=== PATIENT | male | born 1940 | race Caucasian/White ===

== ENCOUNTER → 2021-09-30 | Outpatient (CLI) | payer OTHER ==
[~2021-09-30] VITALS: Ht 175.3 cm; Wt 79.4 kg
[~2021-09-30] MED LIST: ALDARA; ASA81BEC PO; CYMBALTA60 MG PO; DOXAZOSIN MESYLA8 MG PO; HYDROCODON-ACE1 EAC7 PO; NORVASC10 MG PO; OCUVITE ADULT1 EAC2 PO; TOPROL XL25 MG PO; ULTRAM50 MG PO; VASCEPA1 GM PO; VITAMIN B12-FO1 EAC1 PO; ZETIA10 MG PO
[2021-09-30 13:06] VITALS: BP 147/87
--- NOTE | 2021-09-30 13:52 | NUR ---
[facility] Assessment: 1. History of Osteoarthritis: History of Rheumatoid Arthritis: NECK 2. Height: 5 ft. 9 in. 175.3 cm. Weight: 175.0 lb. oz. 79.380 kg. Patient's BMI: 25.8 3. Vital Signs: BP: 147/87 Pulse: 75 Resp: 16 Temp: 02 Sat: 100 ECG Mon: 4. Pain Intensity: 6 UP TO A 9 5. Fall Risk: Dizziness: N Needs help standing or walking: N Fallen in the last 3 months: N Fall risk comments: 6. Patient on Blood Thinner: None 7. History of Hypertension: Y 8. Opioid Therapy greater than 6 weeks: Opiate Contract Signed: 9. Risk Assessment Tool Provided: 0-3 LOW 10. Functional Assessment Tool: 11. Recreational Drug Use: Never Drug Type: Tobacco Use: Never Smoker Tobacco Type: Amount or Packs/day: How Many Years: Alcohol Use: No Frequency: Quant:
== END ==
LOC: PAIN 12:12
PROVIDERS: ATTEND Anesthesiology Pain Medicine
DX: M51.36 Other intervertebral disc degeneration, lumbar region (principal); M48.061 Spinal stenosis, lumbar region without neurogenic claudication; M43.26 Fusion of spine, lumbar region; Z88.8 Allergy status to other drugs, medicaments and biological substances; Z79.899 Other long term (current) drug therapy